=== PATIENT | male | born 1935 | race Caucasian/White ===

== ENCOUNTER 2022-06-08 07:52 | Emergency (ER) | payer MEDICARE, OTHER ==
[2022-06-08] MEDS ORDERED: Sodium Chloride 0.9% 10 ML Syringe FLUSH PRN (08:13)
[2022-06-08] MEDS ORDERED: Nitroglycerin 0.4 MG Tab.SL SL ONE (08:19)
[2022-06-08 08:35] VITALS: PULSE 65
[2022-06-08 08:43] LABS: PTT,PARTIAL THROMBOPLSTIN TIME 23.3 SEC (20.5-30.9)
[2022-06-08 08:51] LABS: CHLORIDE,CL 102 mmol/L (98-107); SODIUM,NA 137 mmol/L (136-145)
[2022-06-08 08:53] LABS: ANION GAP 15.6 mmol/L (5-15); ESTIMATED GFR 58 mL/min (>=60)
[2022-06-08] MEDS ORDERED: Furosemide 40 MG/4 ML VIAL IV ONE (09:17)
[2022-06-08 11:26] VITALS: BP 160/72
== END 2022-06-08 10:15 | disposition home or self-care (01) ==
LOC: VM.ED 07:52
DX: I11.0 Hypertensive heart disease with heart failure (principal); I50.9 Heart failure, unspecified; M19.90 Unspecified osteoarthritis, unspecified site; E11.9 Type 2 diabetes mellitus without complications; Z87.891 Personal history of nicotine dependence; Z88.5 Allergy status to narcotic agent; Z79.82 Long term (current) use of aspirin; Z79.899 Other long term (current) drug therapy
CPT/HCPCS: 71045; 80053; 83735; 83880; 84100; 84484; 85025; 85610; 85730; 86140; 93005; 96374; 99285; J1940